=== PATIENT | female | born 2000 | race Caucasian/White ===

== ENCOUNTER 2019-10-20 18:03 | Emergency (ER) | payer SELFPAY ==
[2019-10-20] MEDS ORDERED: Acetaminophen TAB* 325 MG PO ONE (19:44)
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
[2019-10-20 20:40] VITALS: BP 118/67
== END 2019-10-20 20:42 | disposition home or self-care (01) ==
LOC: ED 18:03
DX: R51 Headache (principal); V49.40XA Driver injured in collision with unspecified motor vehicles in traffic accident, initial encounter; Y92.488 Other paved roadways as the place of occurrence of the external cause; J45.909 Unspecified asthma, uncomplicated; K21.9 Gastro-esophageal reflux disease without esophagitis; F41.9 Anxiety disorder, unspecified; F32.9 Major depressive disorder, single episode, unspecified; Z88.0 Allergy status to penicillin; Z88.1 Allergy status to other antibiotic agents
CPT/HCPCS: 99281; A9270-GY

== ENCOUNTER 2023-12-12 15:08 | Inpatient (IN) ==
[2023-12-12 15:59] LABS: ABS Basophils 0.1 10^3/uL (0.0-0.1); ABS Eosinophils 0.3 10^3/uL (0.0-0.5); ABS Lymphocytes 3.3 10^3/uL (1.0-4.8); ABS Monocytes 0.8 10^3/uL (0.0-0.9); ABS Neutrophils 8.1 10^3/uL (1.5-7.6); Eosinophil % 2.7 %; Hematocrit 42.5 % (35-45); Hemoglobin 14.4 g/dL (11.5-14.3); Lymphocyte % 26.3 %; Mean Corpuscular Volume 88.3 fL (80-97); Mean Platelet Volume 7.5 fL (7.5-11.2); Platelet Count 406 10^3/uL (150-450); Red Blood Count 4.81 10^6/uL (3.63-4.92); Red Cell Distribution Width 13.2 % (12-17); White Blood Count 12.6 10^3/uL (3.8-11.8)
[2023-12-12 16:52] LABS: ALT 13 U/L (7-52); AST 16 U/L (13-39); Acetaminophen < 15 mcg/mL; Albumin 4.7 g/dL (3.2-5.2); Albumin/Globulin Ratio 1.6 (1-3); Alcohol, S < 13 mg/dL (<13); Alkaline Phosphatase 71 U/L (35-149); Anion Gap 9 mmol/L (2-16); Blood Urea Nitrogen 14 mg/dL (6-24); CO2 Carbon Dioxide 26 mmol/L (22-32); Calcium 9.8 mg/dL (8.6-10.3); Chloride 101 mmol/L (101-111); Creatinine, Serum 0.74 mg/dL (0.51-0.95); Glucose 91 mg/dL (70-100); Potassium 4.1 mmol/L (3.5-5.0); Salicylate < 2.50 mg/dL (<30); Sodium 136 mmol/L (135-145); Total Bilirubin 0.5 mg/dL (0.2-1.0); Total Protein 7.7 g/dL (6.4-8.9); eGFR CKD-EPI 115.8 (>60)
[2023-12-12 18:22] LABS: Urine Benzodiazepine Screen Presumptive Positive (None Detect); Urine Cannabinoids Screen Presumptive Positive (None Detect); Urine Opiates Screen None Detected (None Detect)
[2023-12-12] MEDS ORDERED: Al Hydrox/Mg Hydrox/Simet LIQ 30 ML UDC PO PRN (19:01)
[2023-12-12] MEDS ORDERED: Nicotine GUM 4MG FRUIT FLAVOR PO PRN (20:00)
[2023-12-13 08:37] LABS: Cholesterol 113 mg/dL; HDL Cholesterol 34.6 mg/dL; LDL Cholesterol 63 mg/dL; Triglycerides 76 mg/dL
[2023-12-13] MEDS: Nicotine PATCH 21 MG/24 HR PATCH TRANSDERM SCH (10:32)
[2023-12-13] MEDS: Vitamin THERAPEUTIC TAB PO SCH (10:33)
[2023-12-13 14:57] LABS: HCG Pregnancy < 0.60 mIU/mL
[2023-12-16] MEDS ORDERED: Guaifenesin/Pseudo 600/60(NF) TAB (Mucinex D) PO PRN (12:25)
[2023-12-16] MEDS: Nicotine Lozenge mini 2 MG LOZNG.MINI MT PRN (13:05)
[2023-12-17] MEDS ORDERED: Polyethylene Glycol 3350 17 GM PACKET PO PRN (16:24)
[2023-12-20 08:29] VITALS: BP 112/62
== END 2023-12-20 11:33 | disposition home or self-care (01) | DRG 751 ==
LOC: ED 15:08 → BSU 17:59
PROVIDERS: ADMIT Psychiatry & Neurology Psychiatry; ATTEND Student in an Organized Health Care Education/Training Program